=== PATIENT | female | born 1950 | race Caucasian/White ===

== ENCOUNTER 2022-09-16 10:54 | Outpatient (CLI) | payer MEDICARE | END 2022-09-16 10:55 | disposition home or self-care (01) | LOC: BURRAD 10:54 | PROVIDERS: ATTEND Physician Assistant | DX: M54.41 Lumbago with sciatica, right side (principal); M54.42 Lumbago with sciatica, left side; M47.816 Spondylosis without myelopathy or radiculopathy, lumbar region | CPT/HCPCS: 72110 ==

== ENCOUNTER 2022-12-15 14:38 | Outpatient (CLI) | payer MEDICARE | END 2022-12-15 14:39 | disposition home or self-care (01) | LOC: BURRAD 14:38 | PROVIDERS: ATTEND Physician Assistant | DX: M79.672 Pain in left foot (principal); M19.072 Primary osteoarthritis, left ankle and foot; M77.32 Calcaneal spur, left foot ==

== ENCOUNTER 2024-10-28 22:01 | Emergency (ER) | payer MEDICARE, OTHER | END 2024-10-28 23:10 | disposition home or self-care (01) | LOC: BURERS 22:01 | DX: S06.0X0A Concussion without loss of consciousness, initial encounter (principal); S00.83XA Contusion of other part of head, initial encounter; E03.9 Hypothyroidism, unspecified; W22.8XXA Striking against or struck by other objects, initial encounter; Z79.899 Other long term (current) drug therapy | CPT/HCPCS: 70450; 70486 ==